=== PATIENT | female | born 1980 | race Caucasian/White ===

== ENCOUNTER 2016-08-17 22:28 | Observation (INO) ==
[2016-08-18] MEDS ORDERED: Naloxone 0.4 MG/ML INJ IVP PRN (01:55)
[2016-08-18] MEDS ORDERED: Acetaminophen 325 MG TABLET PO PRN (01:55)
[2016-08-18] MEDS ORDERED: Ondansetron 4 MG/2 ML VIAL IVP PRN (01:55)
[2016-08-18] MEDS: 0.9 % Sodium Chloride 1,000 ML IVC SCH ×3 (02:09→18:15)
--- NOTE | 2016-08-18 03:52 | Internal Med History&Physical ---
Date of Encounter: 08/18/16 Time of Encounter: 02:00 Assessment and Plan (1) Sepsis Current visit: Yes Status: Acute Patient meet criteria of sepsis with leukocytosis and tachycardia. Infection site should be diverticulitis. - Goal-directed resuscitation has been started in [place] the emergency room. - Lactate acid is high initially. Will repeat of the resuscitation. - Continue IV Ertapenam and the Flagyl. Qualifiers: Sepsis type: sepsis due to unspecified organism Qualified Code(s): A41.9 - Sepsis, unspecified organism (2) History of hyperthyroidism Current visit: Yes Status: Acute Patient has a history of hypothyroidism. On no medications right now. We will check thyroid function in a.m. (3) DVT prophylaxis Current visit: Yes Status: Acute Lovenox subcutaneously (4) Acute diverticulitis Current visit: No Status: Acute Pt's symptoms and CT scan supported acute diverticulitis. - Continue IV fluid, nothing by mouth. - Continue IV antibiotics. - Surgical consult called by [place] emergency room Internal Medicine - H&P: HPI Chief complaint: Abdominal pain Admitted From: Home Plans for Post Hospital Care: Home History of present illness: Ms. Stallworth is a 36 year old female presents to [place] emergency room for abdominal pain for 1 day. Patient said the pain is located on lower abdominal, cramping, 8/10. He also has nausea and no vomiting. Patient has a 1 watery bowel movement, no blood in it. Patient denies fever. She had a CAT scan in [place] emergency room, which shows diverticulitis. Patient was given antibiotic and transferred to our hospital for further management. Discussed the CODE STATUS with patient. Full code placed. Past Med Surg Social Fam HX - Past Medical History Medical history: thyroid disease Psychiatric history: anxiety - Past Surgical History Surgical History: - Social History Smoking Status: Current every day smoker Packs per day: 1/2 Smokeless Tobacco Status: No Alcohol use: none Drug use: none - Family History Mother Living Status: Age at : 52 Cause of : ovarian Internal Medicine - H&P: Meds Gabapentin [Neurontin] 800 mg PO TID #30 tablet 01/06/15 [Rx] Metoprolol [Lopressor] 50 mg PO DAILY 07/16/15 [History] Cyclobenzaprine [Flexeril] 10 mg PO HS 08/17/16 [History] Sertraline [Zoloft] 50 mg PO DAILY 08/17/16 [History] Allergies Amoxicillin Adverse Reaction (Verified 08/17/16 17:44) Rash All Systems PM: A 10-system review of systems was performed and is negative for pertinent findings except as documented above in the HPI. - Constitutional Vitals: Temp Pulse Resp BP Pulse Ox 98.2 F 104 16 116/74 97 08/18/16 00:00 08/18/16 00:00 08/18/16 00:00 08/18/16 00:00 08/18/16 00:00 General appearance: Present: A&O X 3, no acute distress, answers questions appropriately - Head Head exam: Present: atraumatic, normocephalic - Eye Eye exam: Present: PERRL, conjuntiva pink, sclera anicteric Pupils: Present: PERRL - Neck Neck exam general surgery: Present: supple, trachea midline. Absent: lymphadenopathy - Respiratory Respiratory exam: Present: CTAB. Absent: accessory muscle use, rales, rhonchi, wheezes - Cardiovascular Cardiovascular exam: Present: RRR, +S1, +S2. Absent: diastolic murmur, gallop, rubs, systolic murmur - GI/Abdominal GI/Abdominal exam: Present: normal bowel sounds, soft, tenderness (Tenderness on left lower quadrant with guarding, no rebound), no peritoneal signs. Absent : distended - Extremities Exam Extremities exam: Present: warm, radial pulses palpable and symetrical. Absent : calf tenderness, cyanotic, pedal edema - Neurological Exam Neurological exam: Present: CN II-XII intact, oriented X3, no focal deficits. Absent: pronater drift, facial droop, speech deficit - Skin Skin exam: Present: dry, intact
[2016-08-18 06:03] LABS: Basophils % 0.3 %; Eosinophils # 0.2 K/mcL (0.0-0.6); Eosinophils % 1.4 %; Hematocrit 39.8 % (35.3-44.9); Immature Granulocytes % 0.3 % (0-4); Lymphocytes # 1.8 K/mcL (0.6-4.6); Lymphocytes % 13.1 %; Mean Corpuscular HGB Conc 32.7 g/dL (31.6-35.5); Mean Corpuscular Hemoglobin 29.9 pg (28.0-33.3); Mean Corpuscular Volume 91.5 fL (83.0-100.0); Mean Platelet Volume 12.9 fL (9.4-12.4); Monocytes # 1.3 K/mcL (0.0-1.3); Monocytes % 9.7 %; Neutrophils # 10.1 K/mcL (1.6-8.9); Platelet Count 170 K/mcL (140-400); Red Blood Count 4.35 M/mcL (3.82-4.97); Red Cell Distribution Width 12.9 % (11.5-14.5); Segmented Neutrophils % 75.2 %
[2016-08-18 06:09] LABS: BUN/Creatinine Ratio 10 (6-26); Blood Urea Nitrogen 6 mg/dL (7-20); Calcium 8.3 mg/dL (8.6-10.8); Carbon Dioxide 24 mEq/L (19-29); Chloride 108 mEq/L (98-109); Glucose 90 mg/dL (70-99); Osmolality,Calculated 283 (280-300); Potassium 3.9 mEq/L (3.5-4.5); Sodium 138 mEq/L (136-145); eGFR For African Americans > 60 (> 60); eGFR For Non-African Americans > 60 (> 60)
[2016-08-18] MEDS: *HR* Enoxaparin 40 MG/0.4 ML SYRINGE SQ SCH (06:10)
[2016-08-18] MEDS: *HR* Morphine 2 MG/ML SYRINGE IVP PRN ×4 (06:16→21:41)
[2016-08-18 06:36] LABS: Thyroid Stimulating Hormone 1.315 mcIU/mL (0.350-4.840); Triiodothyronine (T3) Free 2.37 pg/mL (1.71-3.71); Triiodothyronine (T3) Total 0.75 ng/mL (0.58-1.59)
[2016-08-18] MEDS ORDERED: MetroNIDAZOLE 500 MG/100 ML 500 MG/100 ML BAG IVPB SCH (08:00)
[2016-08-18] MEDS: *HR* HYDROcodone/Acet 5/325 mg TABLET PO PRN ×2 (08:11→18:15)
[2016-08-18] MEDS: Gabapentin 400 MG CAPSULE PO SCH ×3 (08:12→20:25)
[2016-08-18] MEDS: Piperacillin/Tazobactam 3.375 GM in D5% in Water (Mini-Bag+) 100 ML IVPB SCH ×2 (13:00→20:25)
[2016-08-18] MEDS ORDERED: Ertapenem 1,000 MG in 0.9 % Sodium Chloride Mini Bag 100 ML IVPB SCH (21:00)
[2016-08-19] MEDS: 0.9 % Sodium Chloride 1,000 ML IVC SCH ×3 (04:02→21:32)
[2016-08-19] MEDS: Piperacillin/Tazobactam 3.375 GM in D5% in Water (Mini-Bag+) 100 ML IVPB SCH ×3 (05:25→21:33)
[2016-08-19] MEDS: *HR* Enoxaparin 40 MG/0.4 ML SYRINGE SQ SCH (05:26)
[2016-08-19] MEDS: *HR* Morphine 2 MG/ML SYRINGE IVP PRN ×2 (06:13→21:33)
[2016-08-19 07:00] LABS: Basophils % 0.3 %; Eosinophils # 0.3 K/mcL (0.0-0.6); Eosinophils % 2.3 %; Hematocrit 38.7 % (35.3-44.9); Hemoglobin 12.7 g/dL (11.5-15.4); Immature Granulocytes % 0.5 % (0-4); Lymphocytes # 1.1 K/mcL (0.6-4.6); Lymphocytes % 9.3 %; Mean Corpuscular HGB Conc 32.8 g/dL (31.6-35.5); Mean Corpuscular Hemoglobin 29.9 pg (28.0-33.3); Mean Corpuscular Volume 91.1 fL (83.0-100.0); Mean Platelet Volume 12.5 fL (9.4-12.4); Monocytes # 0.8 K/mcL (0.0-1.3); Monocytes % 6.5 %; Neutrophils # 9.9 K/mcL (1.6-8.9); Platelet Count 167 K/mcL (140-400); Red Blood Count 4.25 M/mcL (3.82-4.97); Red Cell Distribution Width 12.7 % (11.5-14.5); Segmented Neutrophils % 81.1 %
[2016-08-19 07:21] LABS: BUN/Creatinine Ratio 10 (6-26); Blood Urea Nitrogen 7 mg/dL (7-20); Calcium 8.5 mg/dL (8.6-10.8); Carbon Dioxide 19 mEq/L (19-29); Chloride 106 mEq/L (98-109); Glucose 64 mg/dL (70-99); Osmolality,Calculated 276 (280-300); Potassium 4.1 mEq/L (3.5-4.5); Sodium 135 mEq/L (136-145); eGFR For African Americans > 60 (> 60); eGFR For Non-African Americans > 60 (> 60)
[2016-08-19] MEDS: Gabapentin 400 MG CAPSULE PO SCH ×3 (09:29→21:33)
[2016-08-19] MEDS: *HR* HYDROcodone/Acet 5/325 mg TABLET PO PRN ×2 (09:32→15:02)
--- NOTE | 2016-08-19 13:09 | Internal Med Progress Note ---
Date of Encounter: 08/19/16 Time of Encounter: 13:07 - Assessment and plan (1) Acute diverticulitis Current Visit: No Status: Acute Assessment and plan: Pt's symptoms and CT scan supported acute diverticulitis. - Continue IV fluid, advanced the diet to clears. - Continue IV antibiotics. Discussed with Dr. Manzano, no surgical intervention at this time, continue conservative management. (2) Sepsis Current Visit: Yes Status: Resolved Qualifiers: Sepsis type: sepsis due to unspecified organism Qualified Code(s): A41.9 - Sepsis, unspecified organism (3) DVT prophylaxis Current Visit: Yes Status: Acute - Subjective Interval history: Patient admitted for mild acute diverticulitis, clinically better, denies any abdominal pain, nausea or vomiting this morning. Was nothing by mouth last night, will advance to clear liquid diet today. - Constitutional Vitals: Temp Pulse Resp BP Pulse Ox 98.1 F 95 12 103/68 96 08/19/16 11:58 08/19/16 11:58 08/19/16 11:58 08/19/16 11:58 08/19/16 11:58 General appearance: Present: A&O X 3, no acute distress, answers questions appropriately Exam: Head Head exam: Present: atraumatic, normocephalic - Eye Eye exam: Present: PERRL, conjuntiva pink, sclera anicteric Pupils: Present: PERRL - Neck Neck exam general surgery: Present: supple, trachea midline. Absent: lymphadenopathy - Respiratory Respiratory exam: Present: CTAB. Absent: accessory muscle use, rales, rhonchi, wheezes - Cardiovascular Cardiovascular exam: Present: RRR, +S1, +S2. Absent: diastolic murmur, gallop, rubs, systolic murmur - GI/Abdominal GI/Abdominal exam: Present: normal bowel sounds, soft, non tender, no peritoneal signs. Absent: distended - Extremities Exam Extremities exam: Present: warm, radial pulses palpable and symetrical. Absent : calf tenderness, cyanotic, pedal edema - Neurological Exam Neurological exam: Present: CN II-XII intact, oriented X3, no focal deficits. Absent: pronater drift, facial droop, speech deficit - Skin Skin exam: Present: dry, intact Internal Medicine: Result - Labs CBC & Chem 7: 08/19/16 06:25 08/19/16 06:25 Labs: Short CBC 08/19/16 Range/Units 06:25 WBC 12.2 H (4.3-11.1) K/mcL Hgb 12.7 (11.5-15.4) g/dL Hct 38.7 (35.3-44.9) % Plt Count 167 (140-400) K/mcL Neutrophils # 9.9 H (1.6-8.9) K/mcL BMP 08/19/16 06:25 Sodium 135 L Potassium 4.1 Chloride 106 Carbon Dioxide 19 BUN 7 Creatinine 0.67 Glucose 64 L Calcium 8.5 L Consult Discharge Plan - Plan Referrals: Nusrat Howard, [employer] [Primary Care Provider] -
[2016-08-20] MEDS: 0.9 % Sodium Chloride 1,000 ML IVC SCH ×2 (05:54→11:01)
[2016-08-20] MEDS: *HR* Enoxaparin 40 MG/0.4 ML SYRINGE SQ SCH (05:55)
[2016-08-20] MEDS: Piperacillin/Tazobactam 3.375 GM in D5% in Water (Mini-Bag+) 100 ML IVPB SCH ×2 (05:55→14:20)
[2016-08-20 08:53] LABS: Basophils % 0.7 %; Eosinophils # 0.5 K/mcL (0.0-0.6); Hematocrit 36.8 % (35.3-44.9); Hemoglobin 12.5 g/dL (11.5-15.4); Immature Granulocytes % 0.2 % (0-4); Lymphocytes # 1.3 K/mcL (0.6-4.6); Lymphocytes % 21.7 %; Mean Corpuscular Hemoglobin 30.9 pg (28.0-33.3); Mean Corpuscular Volume 90.9 fL (83.0-100.0); Mean Platelet Volume 12.3 fL (9.4-12.4); Monocytes # 0.6 K/mcL (0.0-1.3); Neutrophils # 3.6 K/mcL (1.6-8.9); Platelet Count 172 K/mcL (140-400); Red Blood Count 4.05 M/mcL (3.82-4.97); Red Cell Distribution Width 12.8 % (11.5-14.5); Segmented Neutrophils % 59.4 %
[2016-08-20 09:12] LABS: BUN/Creatinine Ratio 6 (6-26); Calcium 8.7 mg/dL (8.6-10.8); Carbon Dioxide 25 mEq/L (19-29); Chloride 108 mEq/L (98-109); Glucose 86 mg/dL (70-99); Osmolality,Calculated 284 (280-300); Potassium 4.1 mEq/L (3.5-4.5); Sodium 139 mEq/L (136-145); eGFR For African Americans > 60 (> 60); eGFR For Non-African Americans > 60 (> 60)
[2016-08-20 09:13] LABS: Blood Urea Nitrogen 4 mg/dL (7-20)
[2016-08-20] MEDS: Gabapentin 400 MG CAPSULE PO SCH ×2 (09:55→14:23)
[2016-08-20 14:16] VITALS: BP 131/80
--- NOTE | 2016-08-20 14:45 | Discharge Summary ---
Date of Encounter: 08/20/16 Time of Encounter: 14:43 - Discharge Diagnosis (1) Acute diverticulitis Priority: Primary Status: Acute (2) Sepsis Priority: Primary Status: Resolved Qualifiers: Sepsis type: sepsis due to unspecified organism Qualified Code(s): A41.9 - Sepsis, unspecified organism (3) DVT prophylaxis Priority: Secondary Status: Acute - Discharge Medications Prescriptions: HYDROcodone/Acet 5/325 mg [[place] 5-325 mg] 1 tab PO Q4HR PRN #20 tablet PRN Reason: Moderate Pain (4-6) Ciprofloxacin [Cipro] 500 mg PO BID 5 Days metroNIDAZOLE [Flagyl] 500 mg PO TID 5 Days Home Medications: Gabapentin [Neurontin] 800 mg PO TID #30 tablet 01/06/15 [Rx] Cyclobenzaprine [Flexeril] 10 mg PO HS PRN 08/17/16 [History] Sertraline [Zoloft] 50 mg PO DAILY 08/17/16 [History] Meloxicam 7.5 mg PO DAILY PRN 08/18/16 [History] Metoprolol [Lopressor] 50 mg PO BID 08/18/16 [History] Ciprofloxacin [Cipro] 500 mg PO BID 5 Days 08/20/16 [Rx] HYDROcodone/Acet 5/325 mg [[place] 5-325 mg] 1 tab PO Q4HR PRN #20 tablet [Rx] metroNIDAZOLE [Flagyl] 500 mg PO TID 5 Days 08/20/16 [Rx] Allergies/Adverse Reactions: Allergies Amoxicillin Adverse Reaction (Verified 08/17/16 17:44) Rash Date of admission: 08/17/16 23:32 Primary care physician: Nusrat Howard CNP Discharging clinician: Zeinab Calzada Anticipated date of discharge: 08/20/16 - Patient Status Disposition: Home, Self-Care Condition: Fair Functional capacity at discharge: independent ambulation Overall status at discharge: patient is back to baseline - Discharge Instructions Instructions: Diverticulitis (DC), Diverticulitis Diet (DC) Follow Up With: Nusrat Howard CNP [Primary Care Provider] - 08/25/16 3:30 pm Forms: Inpatient Work/School Release - Diet and Activity Activity: resume usual activities as tolerated Diet: other (soft diet for 1 week ) Interval History: Ms. Stallworth is a 36 year old female presents to [place] emergency room for abdominal pain for 1 day. Patient said the pain is located on lower abdominal, cramping, 8/10. sHe also has nausea and no vomiting. Patient has a 1 watery bowel movement, no blood in it. Patient denies fever. She had a CAT scan in [place] emergency room, which shows diverticulitis and signs of surrounding peritonitis possible reactve. Patient was given antibiotic and transferred to our hospital for further management. she was tretaed conservatively with IVF, IV antibiotics and bowel rest. Pain gradually got better and she was able to tolerate soft diet without any worsening of pain nausea or vomiting. She will be discharged today in stable condition on oral Cipro and Flagyl for 5 days. She was advised to follow-up with PCP as outpatient Hospital course: Ms. Stallworth is a 36 year old female - Time Spent with Patient Total time spent providing and/or coordinating discharge services: - Constitutional Vitals: Temp Pulse Resp BP Pulse Ox 98.0 F 84 16 131/80 95 08/20/16 14:15 08/20/16 14:15 08/20/16 14:15 08/20/16 14:15 08/20/16 14:15 General appearance: Present: A&O X 3, no acute distress, answers questions appropriately Exam: - Head Head exam: Present: atraumatic, normocephalic - Eye Eye exam: Present: PERRL, conjuntiva pink, sclera anicteric Pupils: Present: PERRL - Neck Neck exam general surgery: Present: supple, trachea midline. Absent: lymphadenopathy - Respiratory Respiratory exam: Present: CTAB. Absent: accessory muscle use, rales, rhonchi, wheezes - Cardiovascular Cardiovascular exam: Present: RRR, +S1, +S2. Absent: diastolic murmur, gallop, rubs, systolic murmur - GI/Abdominal GI/Abdominal exam: Present: normal bowel sounds, soft, nontender, no peritoneal signs. Absent: distended - Extremities Exam Extremities exam: Present: warm, radial pulses palpable and symetrical. Absent : calf tenderness, cyanotic, pedal edema - Neurological Exam Neurological exam: Present: CN II-XII intact, oriented X3, no focal deficits. Absent: pronater drift, facial droop, speech deficit - Skin Skin exam: Present: dry, intact
== END 2016-08-20 16:09 | disposition home or self-care (01) ==
LOC: 3ANU
PROVIDERS: ADMIT Internal Medicine; ATTEND Internal Medicine Endocrinology, Diabetes & Metabolism